=== PATIENT | female | born 1975 | race Caucasian/White ===

== ENCOUNTER 2018-03-17 13:17 | Observation (INO) | payer OTHER ==
[2018-03-17] MEDS ORDERED: MORPHINE 4 MG/ML SYR ONE (13:38)
[2018-03-17] MEDS ORDERED: ONDANSETRON 4 MG/2 ML VIAL ONE (13:38)
[2018-03-17] MEDS ORDERED: FENTANYL CITR 100 MCG/2 ML ONE (13:47)
[2018-03-17] MEDS ORDERED: Ringers Lactate 1,000 ML IV ONE (14:06)
[2018-03-17] MEDS ORDERED: HYDROMORPHONE HCL 1 MG/ML INJ ONE (14:06)
[2018-03-17 14:11] LABS: Absolute Lymphocytes (CBC) 2.2 K/uL (0.7-4.9); Absolute Monocytes 0.5 K/uL (0.1-1.3); Absolute Neutrophil 5.9 K/uL (1.8-8.0); Basophils % 0.4 % (0-1.3); Eosinophils % 2.2 % (0-4.4); Hematocrit 37.1 % (36.0-45.0); MCV 83.8 fL (80-100); Monocytes % 5.2 % (3.3-12.3); RBC Red Blood Cell Count 4.43 M/uL (3.86-4.86)
[2018-03-17 14:29] LABS: Albumin 3.8 g/dL (3.4-5.0); Bilirubin Direct 0.2 mg/dL (0-0.2); Bilirubin Total 0.7 mg/dL (0.2-1.0); Potassium 3.6 mmol/L (3.5-5.1)
[2018-03-17] MEDS ORDERED: PROMETHAZINE 25 MG/ML VIAL ONE (14:36)
[2018-03-17] MEDS ORDERED: NA CHLORIDE 0.9% 100 ML IV ONE (14:36)
--- NOTE | 2018-03-17 15:03 | RAD REPORT ---
EXAM DESCRIPTION: CTAbdomen Pelvis W Contrast - 03/17/2018 2:54 pm CLINICAL HISTORY: Abdominal pain. Right lower abdominal pain, IV ONLY COMPARISON: No comparisons TECHNIQUE: Biphasic CT imaging of the abdomen and pelvis was performed with 100 ml non-ionic IV cont rast. All CT scans are performed using dose optimization technique as appropriate and may include automated exposure control or mA/KV adjustment according to patient size. FINDINGS: The lung bases are clear.Small hiatal hernia. The liver, spleen, pancreas, adrenal glands and kidneys are within normal limits. No bowel obstruction, free air, free fluid or abscess. Scattered colonic diverticulosis is present. T he appendix is normal. No evidence of significant lymphadenopathy. No suspicious bony findings. 5.7 cm right ovarian cyst is present. 3.5 cm left ovarian cyst is present. IUD is in place over appea rs low in position near the cervix/lower uterine segment. IMPRESSION: Normal appendix. 5.7 cm right ovarian cyst is noted. IUD appears low in position.
--- NOTE | 2018-03-17 17:18 | ER ---
Nurse's Notes [facility] Name: Myrtle Barrow Age: 43 yrs Sex: Female : 1975 Arrival Date: 03/17/2018 Time: 13:21 Bed 13 Private MD: Diagnosis: Other ovarian cysts;Intractable Pain Presentation: 03/17 13:22 Presenting complaint: EMS states: sudden onset RLQ pain X 35 min, pain is now radiating iw around to back and down right leg, vomited upon arrival to ER, hx of ovarian cyst. Transition of care: patient was not received from another setting of care. Onset of symptoms was March 17, 2018. Risk Assessment: Do you want to hurt yourself or someone else? Patient reports no desire to harm self or others. Initial Sepsis Screen: Does the patient meet any 2 criteria? No. Patient's initial sepsis screen is negative. Does the patient have a suspected source of infection? No. Patient's initial sepsis screen is negative. Care prior to arrival: Medication(s) given: zofran 4 mg, fentanyl 100 mg IVP IV initiated. 20 GA, in the right forearm. 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 - Social history:: Smoking status: Patient/guardian denies using tobacco. - Ebola Screening: : Patient negative for fever greater than or equal to 101.5 degrees Fahrenheit, and additional compatible Ebola Virus Disease symptoms Patient denies exposure to infectious person Patient denies travel to an Ebola-affected area in the 21 days before illness onset No symptoms or risks identified at this time. Screenin:46 Abuse screen: Denies threats or abuse. Denies injuries from another. Nutritional ch screening: No deficits noted. Tuberculosis screening: No symptoms or risk factors identified. Fall Risk None identified. Assessment: 13:46 General: Appears uncomfortable, Behavior is anxious, restless. Pain: Complains of pain ch in right lower quadrant Pain currently is 10 out of 10 on a pain scale. Neuro: No deficits noted. Level of Consciousness is awake, alert, obeys commands, Oriented to person, place, time, situation, Supervisor Edging are equal bilaterally. Respiratory: Airway is patent Respiratory effort is even, unlabored, Breath sounds are clear bilaterally. GI: Bowel sounds present X 4 quads. Abd is soft X 4 quads Abdomen is tender to palpation in right lower quadrant. Derm: Skin is diaphoretic, Skin is pale. 14:54 Reassessment: Patient appears in no apparent distress at this time. Patient and/or ch family updated on plan of care and expected duration. Pain level reassessed. Patient is alert, oriented x 3, equal unlabored respirations, skin warm/dry/pink. pt states her pain is still an 8. pt appears more comfortable. pt transported to ct via wheelchair. 16:07 Reassessment: Patient appears in no apparent distress at this time. Patient and/or ch family updated on plan of care and expected duration. Pain level reassessed. Patient is alert, oriented x 3, equal unlabored respirations, skin warm/dry/pink. Patient states feeling better. Patient states symptoms have improved. 17:10 Reassessment: Patient and/or family updated on plan of care and expected duration. Pain hj level reassessed. Patient is alert, oriented x 3, equal unlabored respirations, skin warm/dry/pink. Patient states feeling better. Patient states symptoms have improved. 18:09 Reassessment: awaiting room placement;. Vital Signs: 13:26 BP 181 / 91; Pulse 78; Resp 18 S; Temp 98.2; Pulse Ox 100% on R/A; Weight 113.4 kg; iw Height 5 ft. 10 in. (177.80 cm); Pain 10/10; 13:46 BP 177 / 96; Pulse 88; Resp 18; Temp 98.3; Pulse Ox 99% on R/A; Pain 9/10; ch 15:00 BP 162 / 98; Pulse 84; Resp 15; Pulse Ox 99% on R/A; ch 16:07 BP 156 / 62; Pulse 71; Resp 16; Temp 98.4; Pulse Ox 99% on R/A; Pain 4/10; ch 17:02 BP 158 / 84; Pulse 75; Resp 16; Temp 98.3; Pulse Ox 99% on R/A; ch 18:08 BP 156 / 87; Pulse 74; Resp 18; Pulse Ox 100% on R/A; hj 13:26 Body Mass Index 35.87 (113.40 kg, 177.80 cm) ED Course: 13:21 Patient arrived in ED. iw 13:23 Soto Velazquez PA is PHCP. [facility] 13:23 Santana Sanders MD is Attending Physician. [facility] 13:25 Triage completed. iw 13:31 Clementina Gaviria, CLAUDIA is Primary Nurse. ch 13:46 Maintain EMS IV. Dressing intact. Good blood return noted. Site clean \T\ dry. Gauge \T\ iw site: 20 RFA. 13:46 No provider procedures requiring assistance completed. Missed attempt(s): 22 gauge in left in right hand. forearm. antecubital area. Bleeding controlled, band aid applied, catheter tip intact. 13:46 Patient has correct armband on for positive identification. Bed in low position. Call light in reach. Side rails up X2. Pulse ox on. NIBP on. 14:[address] via wheelchair. jg6 14:54 CT Abd/Pelvis - W/Contrast In Process Unspecified. EDMS 15:58 Transvaginal Study Probe In Process Unspecified. EDMS 17:06 Report given to Oscar. 17:17 Kirk Estrada MD is Hospitalizing Provider. [facility] 18:07 Inserted saline lock: 24 gauge in right forearm, using aseptic technique. hj 18:26 Patient admitted, IV remains in place. intact. hj 18:26 Arm band placed on. hj Administered Medications: 13:35 Drug: morphine 4 mg Route: IVP; Site: right forearm; iw 14:06 Follow up: Response: No adverse reaction; No change in condition ch 13:35 Drug: Zofran 4 mg Route: IVP; Site: right forearm; iw 14:05 Follow up: Response: No adverse reaction; No change in condition 13:45 Drug: fentaNYL (PF) 50 mcg Route: IVP; Site: right forearm; 13:59 Follow up: Response: No adverse reaction; No change in condition 13:50 Drug: Lactated Ringers Solution 1000 ml Route: IV; Rate: 1000 bolus; Site: right ch forearm; 14:50 Follow up: IV Status: Completed infusion; IV Intake: 1000ml 13:57 CANCELLED (other medication used): Ketorolac 30 mg IVP once [facility] 14:00 Drug: Dilaudid 1 mg Route: IVP; Site: right forearm; ch 14:25 Follow up: Response: No adverse reaction; Pain is decreased ch 16:11 Follow up: Response: No adverse reaction; Marked relief of symptoms ch 14:30 Drug: Phenergan 25 mg Route: IVP; Site: right forearm; ch 16:11 Follow up: Response: No adverse reaction; Marked relief of symptoms; pt recieved 100mL ch NS with phenergan, finished now. Intake: 14:50 IV: 1000ml; Total: 1000ml. Outcome: 17:18 Decision to Hospitalize by Provider. [facility] 18:25 Admitted to L \T\ D, accompanied by nurse, family with patient, via stretcher, room 279, with chart, Report called to CLAUDIA Meza 18:25 Condition: stable 18:25 Instructed on the need for admit, Demonstrated understanding of instructions. 18:26 Patient left the ED. Signatures: Dispatcher [employer] EDMS Clementina Gaviria, RN CLAUDIA Soto Velazquez PA PA Ruchi Hyman, CLAUDIA TAYLOR Oscar Salomon RN Ivanna Moore [email or web address] Corrections: (The following items were deleted from the chart) 13:46 13:26 Pulse 78bpm; Resp 18bpm; Spontaneous; Pulse Ox 100% RA; Temp 98.2F; 113.4 kg; iw Height 5 ft. 10 in.; BMI: 35.8; Pain 10/10; iw 13:47 13:46 Inserted saline lock: 20 gauge in right forearm, using aseptic technique. iw iw
--- NOTE | 2018-03-17 17:19 | EDPHYS ---
Physician Documentation [facility] Name: Myrtle Barrow Age: 43 yrs Sex: Female : 1975 Arrival Date: 03/17/2018 Time: 13:21 Bed 13 Private MD: ED Physician Santana Sanders HPI: 03/17 13:24 This 43 yrs old Female presents to ER via EMS with complaints of Abdominal [facility] Pain. 13:24 The patient presents with abdominal pain. 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 - Social history:: Smoking status: Patient/guardian denies using tobacco. - Ebola Screening: : Patient negative for fever greater than or equal to 101.5 degrees Fahrenheit, and additional compatible Ebola Virus Disease symptoms Patient denies exposure to infectious person Patient denies travel to an Ebola-affected area in the 21 days before illness onset No symptoms or risks identified at this time. Vital Signs: 13:26 BP 181 / 91; Pulse 78; Resp 18 S; Temp 98.2; Pulse Ox 100% on R/A; Weight 113.4 kg; iw Height 5 ft. 10 in. (177.80 cm); Pain 10/10; 13:46 BP 177 / 96; Pulse 88; Resp 18; Temp 98.3; Pulse Ox 99% on R/A; Pain 9/10; ch 15:00 BP 162 / 98; Pulse 84; Resp 15; Pulse Ox 99% on R/A; ch 16:07 BP 156 / 62; Pulse 71; Resp 16; Temp 98.4; Pulse Ox 99% on R/A; Pain 4/10; ch 17:02 BP 158 / 84; Pulse 75; Resp 16; Temp 98.3; Pulse Ox 99% on R/A; ch 18:08 BP 156 / 87; Pulse 74; Resp 18; Pulse Ox 100% on R/A; hj 13:26 Body Mass Index 35.87 (113.40 kg, 177.80 cm) iw MDM: 13:29 Patient medically screened. [facility] 17:16 Data reviewed: vital signs, nurses notes, lab test result(s), radiologic studies. [facility] Counseling: I had a detailed discussion with the patient and/or guardian regarding: the historical points, exam findings, and any diagnostic results supporting the discharge/admit diagnosis, radiology results, the need for further work-up and treatment in the hospital. 03/17 13:24 Order name: Basic Metabolic Panel; Complete Time: 14:32 [facility] 03/17 13:24 Order name: CBC with Diff; Complete Time: 14:32 [facility] 03/17 13:24 Order name: Creatinine for Radiology; Complete Time: 14:32 [facility] 03/17 13:24 Order name: Hepatic Function; Complete Time: 14:32 [facility] 03/17 13:24 Order name: Lipase; Complete Time: 14:32 [facility] 03/17 13:24 Order name: Test, Serum; Complete Time: 14:32 [facility] 03/17 13:30 Order name: CT Abd/Pelvis - W/Contrast; Complete Time: 15:12 [facility] 03/17 15:58 Order name: Transvaginal Study Probe; Complete Time: 18:11 [facility] 03/17 13:24 Order name: IV Saline Lock; Complete Time: 14:06 [facility] 03/17 13:24 Order name: Labs collected and sent; Complete Time: 14:07 [facility] 03/17 13:24 Order name: Saline Lock; Complete Time: 14:05 [facility] 03/17 17:38 Order name: [facility] [employer] EDAZ Administered Medications: 13:35 Drug: morphine 4 mg Route: IVP; Site: right forearm; iw 14:06 Follow up: Response: No adverse reaction; No change in condition ch 13:35 Drug: Zofran 4 mg Route: IVP; Site: right forearm; iw 14:05 Follow up: Response: No adverse reaction; No change in condition ch 13:45 Drug: fentaNYL (PF) 50 mcg Route: IVP; Site: right forearm; ch 13:59 Follow up: Response: No adverse reaction; No change in condition ch 13:50 Drug: Lactated Ringers Solution 1000 ml Route: IV; Rate: 1000 bolus; Site: right forearm; 14:50 Follow up: IV Status: Completed infusion; IV Intake: 1000ml hj 13:57 CANCELLED (other medication used): Ketorolac 30 mg IVP once [facility] 14:00 Drug: Dilaudid 1 mg Route: IVP; Site: right forearm; ch 14:25 Follow up: Response: No adverse reaction; Pain is decreased ch 16:11 Follow up: Response: No adverse reaction; Marked relief of symptoms ch 14:30 Drug: Phenergan 25 mg Route: IVP; Site: right forearm; ch 16:11 Follow up: Response: No adverse reaction; Marked relief of symptoms; pt recieved 100mL ch NS with phenergan, finished now. Disposition: 03/17/18 17:18 Hospitalization ordered by Kirk Estrada for Observation. Preliminary diagnosis are Other ovarian cysts, Intractable Pain. - Bed [facility] for [facility]. - Status is Observation. hj - Condition is Stable. - Problem is new. - Symptoms have improved. UTI on Admission? No Addendum: 03/22/2018 17:00 Addendum: This is a 33 year old female with a history of HTN, Ovarian cysts that j mm presents to the ED with RLQ abdominal pain just prior to arrival. Denies diarrhea, denies fever. ROS: Abdominal pain, nausea, vomiting. Otherwise negative. PE: Gen: Alert, uncomfortable in appearance, Resp: RRR, Cardio: RRR, Abd: Right sided abdominal pain on palpation, soft. Extremities: FROM, Neuro: A x o x 3. MDM. A large ovarian cyst is revealed on CT and US imaging. Flow is noted to the ovaries. Patient's is still uncomfortable in the ED. Due to large size of cyst patient will be observed. I discussed findings with Dr. Estrada whom accepted admission. Diagnosis: Right ovarian cyst, pelvic pain intractable. . Signatures: Dispatcher [employer] EDMS Clementina Gaviria, Soto Veliz RN, ch, PA PA jmm Williams, Irene, RN RN iw Joaquin, Henry, RN RN hj Moya, Gabriella Corrections: (The following items were deleted from the chart) 03/17 13:57 13:56 Ketorolac 30 mg IVP once ordered. cj josé 15:58 15:14 Pelvis Complete+US.RAD.BRZ ordered. EDMS EDMS 18:12 17:18 Hospitalization Ordered by Kirk Estrada MD for Observation. Preliminary gm diagnosis is Other ovarian cysts; Intractable Pain. Bed requested for [facility]. Status is Observation. Condition is Stable. Problem is new. Symptoms have improved. UTI on Admission? No. jmm 18:26 18:12 03/17/2018 17:18 Hospitalization Ordered by Kirk Estrada MD for Observation. hj Preliminary diagnosis is Other ovarian cysts; Intractable Pain. Bed requested for [facility]. Status is Observation. Condition is Stable. Problem is new. Symptoms have improved. UTI on Admission? No. gm
[2018-03-17] MEDS ORDERED: ONDANSETRON 4 MG/2 ML VIAL IV PRN (17:35)
--- NOTE | 2018-03-17 18:02 | RAD REPORT ---
EXAM DESCRIPTION: US - Transvaginal Study Probe - 03/17/2018 3:58 pm CLINICAL HISTORY: right lower abdominal pain Pelvic pain. COMPARISON: TRANSVAGINAL STUDY PROBE dated 10/07/2011 FINDINGS: The uterus is normal in size, shape and echotexture. The uterus measures 9.4 x 6.9 x 6.1 c m The endometrial stripe measures 6 mm, normal. IUD is present in the lower uterine segment/ cervical c anal. Both ovaries are normal in size, shape and echotexture. The right ovary measures 8.7 x 5.0 x 4.4 cm. The left ovary measures 5.8 x 4.0 x 2.7 cm. Two abutting right ovarian cysts suspected measuring 5. 5 x 3.7 x 3.9 cm in totality. Several follicles also noted involving the left ovary the largest measu ring 3.4 x 2.4 cm. Normal Doppler blood flow was demonstrated to both ovaries. No significant pelvic ascites. IMPRESSION: Bilateral ovarian anechoic cysts are present, likely functional in etiology.No evidence of ovarian torsion. IUD is low in position at the level of the lower uterine segment/cervical canal.
[2018-03-17] MEDS: MORPHINE 4 MG/ML SYR IV PRN (18:45)
[2018-03-17 19:07] VITALS: BMI 35.9
[2018-03-17] MEDS ORDERED: KETOROLAC 30 MG/ML INJ IV ONE (19:29)
[2018-03-17] MEDS ORDERED: D5LR 1,000 ML IV SCH (20:00)
[2018-03-17] MEDS ORDERED: ZOLPIDEM TARTRATE 5 MG TABLET PO SCH (21:00)
[2018-03-17] MEDS: CODEINE 30MG/APAP 300MG TAB PO PRN (23:35)
[2018-03-18] MEDS: MORPHINE 4 MG/ML SYR IV PRN ×3 (04:35→19:20)
[2018-03-18] MEDS: Ringers Lactate 1,000 ML IV SCH (04:35)
[2018-03-18] MEDS ORDERED: KETOROLAC 30 MG/ML INJ IV ONE (07:25)
[2018-03-18] MEDS ORDERED: cloNIDine HCl 0.1 MG TAB PO ONE (07:47)
[2018-03-18] MEDS ORDERED: CEFAZOLIN/SWI 1gm 1 GM/10 ML SYR IV SCH (08:15)
--- NOTE | 2018-03-18 09:55 | PREOPHP ---
Date of Admission: 03/17/2018 A 43-year-old female with sudden onset of right lower quadrant pain. 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 CAT scan and ultrasound demonstrated a 5.7 cm right ovarian cyst, a 3.7 cm left ovarian cyst, and IUD that is in the low part of the uterus, but this is not being used for contraception. She has Mirena and it has controlled her bleeding, so I do not think that is the problem although we suggest we possibly could remove the IUD and see if that takes care of the pain. It appears though t hat the right ovarian cyst is the cause of the pain. The patient has been given options of expectant management, but she has had Dilaudid and morphine and nothing seems to be helping her pain other sudhakar n Toradol, which we will give here IV prior to the surgery. She wishes to proceed with diagnostic la paroscopy, probable oophorectomy, lysis of adhesions, appendectomy whatever is necessary to alleviate her discomfort. Dr. Lanza has been notified. He and I will proceed with the surgery at the first o pportunity, she will be kept n.p.o., of course, until then. Family History: Diabetes, congestive heart failure in her father, but no significant other family hi story. Allergies: THE PATIENT HAS REALLY NO ALLERGIES. AT ONE TIME, SHE WAS THOUGHT TO BE ALLERGIC TO EMA ISONE, BUT SHE SAYS SHE DOES NOT THINK THAT IS THE CASE. SHE IS N.P.O. HER VITAL SIGNS ARE SIGNIFICANT IN THAT SHE HAS SIGNIFICANTLY ELEVATED BLOOD PRESSURES , AT TIME HITTING 200 SYSTOLIC. I GAVE HER CLONIDINE 0.1 MG AT THIS POINT AND ANESTHESIA OF COURSE W ILL NEED TO CONSIDER WHAT TO DO TO CONTROL IT WHILE WE ARE AT SURGERY. Physical Examination: HEENT: Clear. Pupils equal, round, and reactive to light and accommodation. Conjunctivae clear. N o oral, lingual or buccal lesions. Heart: Without murmurs, thrills, heaves, or rubs. Lungs: Clear. Breasts: Not examined. Abdomen: Very tender so exam is deferred. Extremities: Clear without edema, cyanosis, or clubbing. Plan: We will proceed with diagnostic laparoscopy, probable oophorectomy. JOSE CRUZ/KAREN Voice ID: [id number]
[2018-03-18] MEDS ORDERED: Ringers Lactate 1,000 ML IV ONE (10:50)
[2018-03-18] MEDS ORDERED: CEFAZOLIN/SWI 1gm 1 GM/10 ML SYR ONE (10:50)
[2018-03-18] MEDS ORDERED: PROPOFOL 200 MG/20 ML VIAL IV ONE (11:51)
[2018-03-18] MEDS ORDERED: MIDAZOLAM HCL 2 MG/2 ML INJ ONE (11:52)
[2018-03-18] MEDS ORDERED: FENTANYL CITR 100 MCG/2 ML ONE (11:52)
[2018-03-18] MEDS ORDERED: ONDANSETRON HCL 40 MG/20 ML VIAL ONE (11:53)
[2018-03-18] MEDS ORDERED: ROCURONIUM 50 MG/5 ML VIAL IV ONE (11:53)
[2018-03-18] MEDS ORDERED: LIDOCAINE 1% MPF 2 ML AMPULE ONE (11:54)
[2018-03-18] MEDS ORDERED: PROMETHAZINE 25 MG/ML VIAL IV PRN (13:52)
[2018-03-18] MEDS: MEPERIDINE HCL 50 MG/ML AMP ONE ×2 (13:52→14:00)
[2018-03-18] MEDS ORDERED: ZOLPIDEM TARTRATE 5 MG TABLET PO PRN (13:53)
[2018-03-18] MEDS ORDERED: KETOROLAC 30 MG/ML INJ IV PRN (13:54)
[2018-03-18] MEDS ORDERED: HYDRALAZINE HCL 20 MG/ML VIAL IV PRN (13:59)
[2018-03-18] MEDS ORDERED: D5LR 1,000 ML IV SCH (14:00)
[2018-03-18] MEDS ORDERED: Ringers Lactate 1,000 ML IV SCH (14:00)
[2018-03-18 14:24] VITALS: O2SAT 95
[2018-03-18] MEDS ORDERED: MORPHINE 4 MG/ML SYR ONE (14:26)
[2018-03-18] MEDS ORDERED: D5LR 1,000 ML IV ONE (14:34)
[2018-03-18 20:49] LABS: Hematocrit 33.2 % (36.0-45.0)
[2018-03-18] MEDS ORDERED: CEFAZOLIN/SWI 1gm 1 GM/10 ML SYR IVP SCH (21:00)
[2018-03-18] MEDS ORDERED: CEFAZOLIN/SWI 1gm 1 GM/10 ML SYR IVP ONE (21:00)
--- NOTE | 2018-03-19 01:05 | OP ---
Surgeon: Kirk Estrada MD Indication: Myrtle Barrow is a 43-year-old female with preoperative diagnosis of bilateral ovarian c ysts. Right ovarian cyst 5.7 cm, left ovarian cyst 3.7 cm, not thought to have torsion on ultrasound and CAT scan. Full preoperative counseling concerning procedure and possible complications includin g infection; blood loss; anesthetic complications; injury to bladder, bowel, ureter; postoperative co mplications, clots in legs and pneumonia. The patient had signed for cystectomy, possible oophorecto my, possible appendectomy. Description Of Procedure: After adequate general anesthesia had been employed, timeout was performed . Dr. Lanza placed 3 ports, 1 above the umbilicus and 2 on the lower quadrants. Pneumoperitoneum wa s established and visualizing instruments were placed. There were noted to be dense adhesions above the uterus from previous sections x2. These were brought down as they were interfering with proper visualization of the operative site. The right ovary was noted to be involved in a torsion s ituation and was much larger than 5.7 cm, I would say at least 8 cm to 9 cm, possibly even larger. L eft ovary had a torsion also, but it was not involve with the distal end of the tube. The uterus its elf was normal. Area of the appendix was normal. With clamping and fulguration, the right ovary was completely removed as well as the right tube. These were taken out in 2 to 3 pieces and sent to [facility]. There was bleeding from the right adnexa, but hemostatic clamps were placed. The clips were placed and the bleeding subsided. Total blood loss during the procedure thought to be about 350 cc, possibly less. On the left side, the tube was coiled and actually almost tied into a knot at the en d. Left partial salpingectomy was performed. The ovary itself appeared normal and no cystic formati on or other type of problems. Thorough irrigation was performed. Surgicel was placed in the area fo r small raw areas that were noted on the right adnexa. The patient tolerated all procedures well. S he had been given 1 g of Ancef prior to the procedure. Will be transferred to the recovery room. I think because of the bleeding that occurred on the right side, we will probably observe the patient o vernight and then let her go home tomorrow morning. Final Diagnoses: Significant pelvic adhesions, right ovarian torsion, left tubal torsion. Procedures Performed: Diagnostic laparoscopy, lysis of adhesions, right salpingo-oophorectomy, left partial salpingectomy. JOSE CRUZ/KAREN Voice ID: [id number] Report ID: [id number]
[2018-03-19] MEDS: Ringers Lactate 1,000 ML IV SCH (01:36)
[2018-03-19] MEDS: CODEINE 30MG/APAP 300MG TAB PO PRN (05:27)
[2018-03-19] MEDS ORDERED: ACETAMINOPHEN 500 MG TAB PO ONE (08:09)
[2018-03-19 10:16] VITALS: BP 145/67; TEMP 99.1
--- NOTE | 2018-03-20 02:50 | DS ---
Date of Discharge: 03/19/2018 A 43-year-old female with right ovarian torsion, left tubal torsion, severe adhesions. The patient u nderwent diagnostic laparoscopy with lysis of adhesions resulting from the previous sections , was noted to have a torsed right adnexa involving the tube and ovary. The initial evaluation to [facility] emergency room showed a 5.7 cm cystic structure. The structure at the time of surgery was much lar tessa, probably in the 9 cm to 10 cm range, very cyanotic, and torsed. The adnexa on that side basical ly tube and ovary were removed. On the left side, the left tube had a hydatid-type cyst and this was also torsed. Partial salpingectomy was performed on the left side. Postoperatively, the patient morales s done quite well. She says, she is feeling much better. She is ambulating. Output is good. Her b lood pressures, which were initially elevated, are now moderated. She will be dismissed after breakf ast. She says, she is very hungry at this point. She is to return to my office Wednesday of . Her incision ports all looked good. Dismissed with tramadol for analgesia. She is to report an y fever, severe pain, or any other type of problems. Final Diagnoses: Complete torsion of the right adnexa involving tube and ovary, right salpingo-oopho rectomy performed, left tubal torsion, partial salpingectomy performed, lysis of numerous adhesions r esulting from sections x2. JOSE CRUZ/KAREN Voice ID: [id number] Report ID: [id number]
== END 2018-03-19 09:45 | disposition home or self-care (01) ==
LOC: ER 13:17 → ERHOLD 17:34 → 2ND-WC 18:22
PROVIDERS: ADMIT Specialist; ATTEND Specialist
PROC: 0UT54ZZ Resection of Right Fallopian Tube, Percutaneous Endoscopic Approach (ICD-10-PCS; 2018-03-18)
PROC: 0UB64ZZ Excision of Left Fallopian Tube, Percutaneous Endoscopic Approach (ICD-10-PCS; 2018-03-18)
PROC: 0UT04ZZ Resection of Right Ovary, Percutaneous Endoscopic Approach (ICD-10-PCS; principal; 2018-03-18 10:15)
DX: N83.53 Torsion of ovary, ovarian pedicle and fallopian tube (principal); N83.202 Unspecified ovarian cyst, left side; N83.201 Unspecified ovarian cyst, right side; Z97.5 Presence of (intrauterine) contraceptive device
CPT/HCPCS: 36415; 74177; 76830; 80048; 80076; 83690; 84703; 85014; 85018; 85025; 86850; 86900; 86901; 88305; 96361; 96374; 96375; 99285; G0378; J0690; J1170; J2001; J2175; J2250; J2405; J2550; J2704; J3010; Q9967

== ENCOUNTER 2018-04-24 21:06 | Emergency (ER) | payer OTHER ==
[2018-04-24] MEDS ORDERED: KETOROLAC 30 MG/ML INJ ONE (22:41)
[2018-04-24] MEDS ORDERED: NA CHLORIDE 0.9% 1,000 ML ONE (22:41)
[2018-04-24 23:12] LABS: Absolute Lymphocytes (CBC) 2.6 K/uL (0.7-4.9); Absolute Monocytes 0.6 K/uL (0.1-1.3); Absolute Neutrophil 3.2 K/uL (1.8-8.0); Eosinophils % 4.2 % (0-4.4); Hematocrit 37.7 % (36.0-45.0); Lymphocytes % 38.8 % (15.3-44.8); MCH 29.3 pg (27.0-35.0); MCV 85.2 fL (80-100); Monocytes % 8.3 % (3.3-12.3); RBC Red Blood Cell Count 4.43 M/uL (3.86-4.86)
[2018-04-24 23:25] LABS: Urine Blood NEGATIVE (NEG); Urine Glucose NEGATIVE (NEG); Urine Protein NEGATIVE (NEG)
[2018-04-24 23:35] LABS: Albumin 3.7 g/dL (3.4-5.0); Bilirubin Direct 0.1 mg/dL (0-0.2); Bilirubin Total 0.6 mg/dL (0.2-1.0); Protein, Total 7.3 g/dL (6.4-8.2)
--- NOTE | 2018-04-25 02:40 | ER ---
Nurse's Notes [facility] Name: Myrtle Barrow Age: 43 yrs Sex: Female : 1975 Arrival Date: 04/24/2018 Time: 21:10 Bed 8 Private MD: Diagnosis: Abdominal tenderness Presentation: 04/24 21:16 Transition of care: patient was not received from another setting of care. Onset of la1 symptoms was April 24, 2018. Risk Assessment: Do you want to hurt yourself or someone else? Patient reports no desire to harm self or others. Initial Sepsis Screen: Does the patient meet any 2 criteria? No. Patient's initial sepsis screen is negative. Does the patient have a suspected source of infection? No. Patient's initial sepsis screen is negative. Care prior to arrival: None. 21:16 Method Of Arrival: Ambulatory la1 21:16 Acuity: [place] 3 la1 21:30 Presenting complaint: Patient states: "I had surgery on my ovaries about a month ago jd3 and today I am having a lot of pain at the sx sight. I think I might have a hernia or something like that where they went it.". 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 - Social history:: Smoking status: Patient/guardian denies using tobacco. - Ebola Screening: : No symptoms or risks identified at this time. Screenin:30 Abuse screen: Denies threats or abuse. Nutritional screening: No deficits noted. jd3 Tuberculosis screening: No symptoms or risk factors identified. Fall Risk Ambulatory Aid- None/Bed Rest/Nurse Assist (0 pts). Gait- Normal/Bed Rest/Wheelchair (0 pts) Mental Status- Oriented to own ability (0 pts). Total Pierre Fall Scale indicates No Risk (0-24 pts). Assessment: 21:27 General: Appears in no apparent distress. uncomfortable, Behavior is cooperative, jd3 appropriate for age, anxious, Reports recent abdominal sx. Pain: Complains of pain in umbilical area Quality of pain is described as aching, tender. Neuro: Level of Consciousness is awake, alert, obeys commands, Oriented to person, place, time, situation. Cardiovascular: Capillary refill < 3 seconds Patient's skin is warm and dry. Respiratory: Airway is patent Respiratory effort is even, unlabored, Respiratory pattern is regular, symmetrical. GI: Abdomen is round non-distended, Bowel sounds present X 4 quads. Abd is soft and non tender X 4 quads. Abdomen is tender to palpation in umbilical area Reports nausea, Patient currently denies constipation, diarrhea, vomiting. : No signs and/or symptoms were reported regarding the genitourinary system. EENT: No signs and/or symptoms were reported regarding the EENT system. Derm: Skin is intact, Skin is dry, Skin is normal, Skin temperature is warm. Musculoskeletal: Circulation, motion, and sensation intact. Range of motion: intact in all extremities. 22:11 Reassessment: Patient appears in no apparent distress at this time. No changes from jd3 previously documented assessment. Patient and/or family updated on plan of care and expected duration. Pain level reassessed. Patient is alert, oriented x 3, equal unlabored respirations, skin warm/dry/pink. awaiting to be seen by a provider. 23:42 Reassessment: Patient appears in no apparent distress at this time. Patient and/or jd3 family updated on plan of care and expected duration. Pain level reassessed. Patient is alert, oriented x 3, equal unlabored respirations, skin warm/dry/pink. Patient states feeling better. 04/25 00:51 Reassessment: Patient appears in no apparent distress at this time. No changes from jd3 previously documented assessment. Patient and/or family updated on plan of care and expected duration. Pain level reassessed. Patient is alert, oriented x 3, equal unlabored respirations, skin warm/dry/pink. 01:59 Reassessment: Patient appears in no apparent distress at this time. Patient and/or jd3 family updated on plan of care and expected duration. Pain level reassessed. Patient is alert, oriented x 3, equal unlabored respirations, skin warm/dry/pink. Vital Signs: 04/24 21:18 BP 146 / 80; Pulse 97; Resp 16; Temp 97.8; Pulse Ox 98% on R/A; Weight 113.4 kg; Height la1 5 ft. 10 in. (177.80 cm); 23:42 BP 152 / 84; Pulse 85; Resp 16 S; Pulse Ox 97% on R/A; jd3 04/25 00:51 BP 148 / 78; Pulse 84; Resp 17 S; Pulse Ox 98% on R/A; jd3 01:59 BP 143 / 59; Pulse 78; Resp 16 S; Pulse Ox 97% on R/A; jd3 04/24 21:18 Body Mass Index 35.87 (113.40 kg, 177.80 cm) la1 ED Course: 04/24 21:10 Patient arrived in ED. mr 21:17 Triage completed. la1 21:18 Arm band placed on right wrist. la1 21:24 Deepak Calero, CLAUDIA is Primary Nurse. jd3 21:30 Patient has correct armband on for positive identification. Bed in low position. [facility]. Side rails up X 1. 22:27 Jacqueline Winn FNP-C [facility]. snw 22:27 Bautista Forman MD is Attending Physician. snw 23:00 Initial lab(s) drawn, by me, sent to lab. Inserted 18 gauge 10 cm midline to left upper fc basilic vein on first attempt. Line with good blood return and flushes well. 04/25 00:50 CT Abd/Pelvis - W/Contrast In Process Unspecified. EDMS 02:48 No provider procedures requiring assistance completed. IV discontinued, intact, jd3 bleeding controlled, No redness/swelling at site. Pressure dressing applied. Administered Medications: 04/24 23:15 Drug: NS 0.9% 1000 ml Route: IV; Rate: 125 ml/hr; Site: left antecubital; jd3 04/25 02:50 Follow up: Response: No adverse reaction; IV Status: Order to discontinue infusion jd3 04/24 23:16 Drug: TORadol 30 mg Route: IVP; Site: left antecubital; jd3 04/25 00:05 Follow up: Response: No adverse reaction jd3 Outcome: 02:38 Discharge ordered by . snw 02:48 Discharged to home ambulatory. jd3 02:48 Condition: stable 02:48 Discharge instructions given to patient, Instructed on discharge instructions, follow up and referral plans. medication usage, Demonstrated understanding of instructions, follow-up care, medications, Prescriptions given X 2. 02:51 Patient left the ED. jd3 Signatures: Dispatcher [employer] EDMS Jacqueline Winn, JESSICA-C OUTREACH EDUCATOR-Okw Myrtle Webster, Esther, RN RN Scooter Germain RN RN laDeepak Escobar RN RN jd3 Corrections: (The following items were deleted from the chart) 04/24 23:14 23:13 Inserted 18 gauge 10 cm midline to left upper basilic vein on first attempt. Line fc with good blood return and flushes well. 23:13 Initial lab(s) drawn, by me, sent to lab. [facility]
--- NOTE | 2018-04-25 02:40 | EDPHYS ---
Physician Documentation [facility] Name: Myrtle Barrow Age: 43 yrs Sex: Female : 1975 Arrival Date: 04/24/2018 Time: 21:10 Bed 8 Private MD: ED Physician Bautista Forman HPI: 04/24 23:56 This 43 yrs old Female presents to ER via Ambulatory with complaints of Belly snw button pain. 23:56 Onset: The symptoms/episode began/occurred suddenly. Associated signs and symptoms: The snw patient has no apparent associated signs or symptoms. Modifying factors: The patient symptoms are alleviated by nothing, the patient symptoms are aggravated by pressure to area. The patient has not experienced similar symptoms in the past. The patient has been recently seen by a physician: pt recently had ovarian torsion, laproscopic surgery a few weeks ago, concern umbilical pain is related. 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 - Social history:: Smoking status: Patient/guardian denies using tobacco. - Ebola Screening: : No symptoms or risks identified at this time. ROS: 23:54 Constitutional: Negative for fever, chills, and weight loss, Eyes: Negative for injury, snw pain, redness, and discharge, ENT: Negative for injury, pain, and discharge, Neck: Negative for injury, pain, and swelling, Cardiovascular: Negative for chest pain, palpitations, and edema, Respiratory: Negative for shortness of breath, cough, wheezing, and pleuritic chest pain, Back: Negative for injury and pain, : Negative for injury, bleeding, discharge, and swelling, MS/Extremity: Negative for injury and deformity, Skin: Negative for injury, rash, and discoloration, Neuro: Negative for headache, weakness, numbness, tingling, and seizure, Psych: Negative for depression, anxiety, suicide ideation, homicidal ideation, and hallucinations. 23:54 Abdomen/GI: Positive for abdominal pain, Negative for nausea, vomiting, diarrhea, constipation. Exam: 23:54 Constitutional: This is a well developed, well nourished patient who is awake, alert, snw and in no acute distress. Head/Face: Normocephalic, atraumatic. Eyes: Pupils equal round and reactive to light, extra-ocular motions intact. Lids and lashes normal. Conjunctiva and sclera are non-icteric and not injected. Cornea within normal limits. Periorbital areas with no swelling, redness, or edema. ENT: Nares patent. No nasal discharge, no septal abnormalities noted. Tympanic membranes are normal and external auditory canals are clear. Oropharynx with no redness, swelling, or masses, exudates, or evidence of obstruction, uvula midline. Mucous membranes moist. Neck: Trachea midline, no thyromegaly or masses palpated, and no cervical lymphadenopathy. Supple, full range of motion without nuchal rigidity, or vertebral point tenderness. No Meningismus. Chest/axilla: Normal chest wall appearance and motion. Nontender with no deformity. No lesions are appreciated. Cardiovascular: Regular rate and rhythm with a normal S1 and S2. No gallops, murmurs, or rubs. Normal PMI, no JVD. No pulse deficits. Respiratory: Lungs have equal breath sounds bilaterally, clear to auscultation and percussion. No rales, rhonchi or wheezes noted. No increased work of breathing, no retractions or nasal flaring. Back: No spinal tenderness. No costovertebral tenderness. Full range of motion. Skin: Warm, dry with normal turgor. Normal color with no rashes, no lesions, and no evidence of cellulitis. MS/ Extremity: Pulses equal, no cyanosis. Neurovascular intact. Full, normal range of motion. Neuro: Awake and alert, GCS 15, oriented to person, place, time, and situation. Cranial nerves II-XII grossly intact. Motor strength 5/5 in all extremities. Sensory grossly intact. Cerebellar exam normal. Normal gait. 23:54 Abdomen/GI: Inspection: abdomen appears normal, Bowel sounds: normal, Palpation: moderate abdominal tenderness, in the umbilical area. Vital Signs: 21:18 BP 146 / 80; Pulse 97; Resp 16; Temp 97.8; Pulse Ox 98% on R/A; Weight 113.4 kg; Height la1 5 ft. 10 in. (177.80 cm); 23:42 BP 152 / 84; Pulse 85; Resp 16 S; Pulse Ox 97% on R/A; jd3 04/25 00:51 BP 148 / 78; Pulse 84; Resp 17 S; Pulse Ox 98% on R/A; jd3 01:59 BP 143 / 59; Pulse 78; Resp 16 S; Pulse Ox 97% on R/A; jd3 04/24 21:18 Body Mass Index 35.87 (113.40 kg, 177.80 cm) la1 MDM: 04/24 22:27 Patient medically screened. snw 04/25 02:42 Data reviewed: vital signs, nurses notes. Data interpreted: Pulse oximetry: on room air snw is 97 %. Interpretation: acceptable. Counseling: I had a detailed discussion with the patient and/or guardian regarding: the historical points, exam findings, and any diagnostic results supporting the discharge/admit diagnosis, the presence of at least one elevated blood pressure reading (>120/80) during this emergency department visit, lab results, radiology results, the need for outpatient follow up, to return to the emergency department if symptoms worsen or persist or if there are any questions or concerns that arise at home. Response to treatment: the patient's symptoms have mildly improved after treatment. Special discussion: Based on the history and exam findings, there is no indication for further emergent testing or inpatient evaluation. I discussed with the patient/guardian the need to see the OB Gyne specialist for further evaluation of the symptoms. I discussed with the patient/guardian the need to see the primary care provider for further evaluation of the symptoms. 04/24 22:29 Order name: Basic Metabolic Panel; Complete Time: 23:37 snw 04/24 22:29 Order name: CBC with Diff; Complete Time: 23:29 snw 04/24 22:29 Order name: Hepatic Function; Complete Time: 23:37 snw 04/24 22:29 Order name: Lipase; Complete Time: 23:37 snw 04/24 22:29 Order name: Urine Culture snw 04/24 22:29 Order name: CT Abd/Pelvis - W/Contrast snw 04/24 22:29 Order name: IV Saline Lock; Complete Time: 23:15 snw 04/24 22:29 Order name: Labs collected and sent; Complete Time: 23:15 snw 04/24 22:29 Order name: Urine Test (obtain specimen); Complete Time: 23:15 snw 04/24 23:06 Order name: Urine Dipstick--Ancillary (enter results); Complete Time: 23:29 mw2 04/24 23:06 Order name: Urine --Ancillary (enter results); Complete Time: 23:29 mw2 04/24 22:29 Order name: Urine Dipstick-Ancillary (obtain specimen); Complete Time: 23:15 snw Administered Medications: 04/24 23:15 Drug: NS 0.9% 1000 ml Route: IV; Rate: 125 ml/hr; Site: left antecubital; jd3 04/25 02:50 Follow up: Response: No adverse reaction; IV Status: Order to discontinue infusion jd3 04/24 23:16 Drug: TORadol 30 mg Route: IVP; Site: left antecubital; jd3 04/25 00:05 Follow up: Response: No adverse reaction jd3 Disposition: 03:15 Co-signature as Attending Physician, Bautista Forman MD. pkl Disposition: 04/25/18 02:38 Discharged to Home. Impression: Abdominal tenderness. - Condition is Stable. - Discharge Instructions: Abdominal Pain, Adult, Ovarian Cyst, Laparoscopic Ovarian Torsion Surgery. - Prescriptions for Bentyl 20 mg Oral Tablet - take 1 tablet by ORAL route every 6 hours As needed; 20 tablet. Diclofenac Sodium 75 mg Oral Tablet Sustained Release - take 1 tablet by ORAL route 2 times per day; 30 tablet. - Medication Reconciliation Form, Thank You Letter, Antibiotic Education, Prescription Opioid Use form. - Follow up: Private Physician; When: 2 - 3 days; Reason: Recheck today's complaints, Continuance of care, Re-evaluation by your physician. Follow up: Emergency Department; When: As needed; Reason: Worsening of condition. Signatures: Dispatcher [employer] [facility] Bautista Forman MD MD pkl Jacqueline Winn, MENTAL HEALTH TECHNICIAN-C MENTAL HEALTH TECHNICIAN-Csnw Scooter Barkley RN RN laDeepak Escobar RN RN jd3 Corrections: (The following items were deleted from the chart) 04/24 23:36 22:30 Creatinine for Radiology+C.LAB.BRZ ordered. [facility] 04/25 02:51 02:38 04/25/2018 02:38 Discharged to Home. Impression: Abdominal tenderness. Condition jd3 is Stable. Forms are Medication Reconciliation Form, Thank You Letter, Antibiotic Education, Prescription Opioid Use. Follow up: Private Physician; When: 2 - 3 days; Reason: Recheck today's complaints, Continuance of care, Re-evaluation by your physician. Follow up: Emergency Department; When: As needed; Reason: Worsening of condition. snw
[2018-04-25 03:08] VITALS: TEMP 97.8
[2018-04-25 03:13] VITALS: BP 143/59; O2SAT 97
--- NOTE | 2018-04-25 08:50 | RAD REPORT ---
EXAM DESCRIPTION: CT - Abdomen Pelvis W Contrast - 04/25/2018 6:43 am CLINICAL HISTORY: Abdominal pain, history of ovarian surgery 1 month earlier with pain at the surgic al site ; oophorectomy COMPARISON: March 17, 2018 TECHNIQUE: Biphasic, helical CT imaging of the abdomen and pelvis was performed following 100 ml non -ionic IV contrast. Oral contrast was given. All CT scans are performed using dose optimization technique as appropriate and may include automated exposure control or mA/KV adjustment according to patient size. FINDINGS: No suspicious findings in the lung bases. The liver, spleen, and pancreas show no suspicious findings. Liver attenuation is borderline to mildl y fatty infiltrated. No gallbladder or biliary tree abnormality. Symmetric renal function is seen with no hydronephrosis or suspicious renal mass. No pyelonephritis o r acute parenchymal process. No bladder abnormalities. No adrenal abnormalities. No dilated bowel loops or bowel wall thickening. Appendix is normal. No free air, free fluid or infla mmatory stranding. Fat protrudes into origin of each inguinal canal. No abdominal wall hematoma or m ass. No suspicious findings in the subcutaneous fatty tissues. Normal size uterus is seen. Low positioned IUD noted. This is similar to the prior study. Arms of the IUD may extend into the myometrium of the lower uterine segment/ cervical canal. Right oophorectomy surgical clips are present. A 3.3 centimeter left ovarian cyst is unchanged. No suspicious bony findings. IMPRESSION: Contrast enhanced CT abdomen and pelvis showing no emergent finding. Approximately 3.3 centimeter left ovarian cyst has not changed. No suspicious finding in the right oo phorectomy site. IUD remains positioned low along the cervical canal and lower uterine segment region. No interval kiah nge since March. Nonacute findings are detailed in the body of the report.
== END 2018-04-25 02:51 | disposition home or self-care (01) ==
LOC: ER 21:06
DX: R10.819 Abdominal tenderness, unspecified site (principal); I10 Essential (primary) hypertension
CPT/HCPCS: 36415; 74177; 80048; 80076; 81003; 81025; 83690; 85025; 87077; 87086; 87088; 87186; 96361; 96374; 99284; J7030; Q9967

== ENCOUNTER → 2018-06-06 | Day surgery (SDC) | payer OTHER ==
--- NOTE | 2018-06-06 11:44 | RAD REPORT ---
EXAM DESCRIPTION: Ultrasound-guided vacuum assisted right breast core biopsy CLINICAL HISTORY: Breast mass N60.91 COMPARISON: No comparisons FINDINGS: Informed consent was obtained and time-out was performed. The patient's right breast was prepped and draped in the usual sterile fashion. 1% lidocaine was used for local anesthetic purposes. Utilizing aseptic technique and ultrasound guidance, a 12 gauge vacuum assisted core biopsy device wa s used to obtain 2 core specimens through the mass of interest. A post biopsy clip was then placed. All collected material was sent for cytology. Patient tolerated procedure well. IMPRESSION: Successful ultrasound guided vacuum assisted right breast mass biopsy.
--- OUTSIDE RECORDS SUMMARY | 2018-07-14 15:39 | XMS REPORT | Clinical Summary ---
:1975 Author Organization [facility] Address [address] [place] [address] Care Team Providers Name Role Phone Unavailable Primary Care Provider Unavailable Allergies No Known Allergies Medications Medication Sig Dispensed Refills Start Date End Date Status ALPRAZolam (XANAX) 0.5 MG Take 0.5 mg by 0 Active tablet mouth every night as needed for Anxiety. diphenhydrAMINE Take 50 mg by 0 Active (BENADRYL) 25 mg tablet mouth every night as needed for Sleep. melatonin 10 mg Tab Take by mouth 0 Active nightly. Active Problems Not on file Encounters Date Type Specialty Care Team Description 07/12/2018 Hospital Encounter Ludy Napoles MD Malignant neoplasm of upper-outer quadrant of right female breast, unspecified estrogen receptor status (HCC) 07/12/2018 Hospital Encounter Ludy Napoles MD Malignant neoplasm of upper-outer quadrant of right female breast, unspecified estrogen receptor status (HCC) 07/12/2018 Hospital Encounter Ludy Napoles MD Malignant neoplasm of upper-outer quadrant of right female breast, unspecified estrogen receptor status (HCC) 07/08/2018 Hospital Encounter Ludy Napoles MD Canceled (Patient) 07/06/2018 Outside Orders Elisha Omalley, 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 Last Filed Vital Signs Vital Sign Reading Time Taken Blood Pressure 146/82 07/12/2018 3:37 PM CDT Pulse 74 07/12/2018 3:37 PM CDT Temperature 36.9 C (98.4 F) 07/12/2018 3:07 PM CDT Respiratory Rate 19 07/12/2018 3:37 PM CDT Oxygen Saturation 97% 07/12/2018 3:37 PM CDT Inhaled Oxygen Concentration - - Weight 105.7 kg (233 lb) 07/11/2018 11:12 AM CDT Height 179.1 cm (5' 10.5") 07/11/2018 11:12 AM CDT Body Mass Index 32.96 07/11/2018 11:12 AM CDT Plan of Treatment Not on file Implants Implanted Type Area [employer] Device Shelf Model / Identifier Expiration Serial / Date Lot Power Port Left: BARD ACCESS 01/01/2020 / Implanted: Qty: 1 on 07/12/2018 by Dorita Laws MD Chest SYSTEMS / [id number] Procedures Procedure Name Priority Date/Time Associated Comments Diagnosis CARDIAC CATH REPORT - 07/13/2018 2:42 SCAN PM CDT ECHOCARDIOGRAM REPORT - 07/12/2018 9:21 SCAN PM CDT XR CHEST 1 VIEW Routine 07/12/2018 3:19 Malignant neoplasm Results for this PORTABLE/BEDSIDE PM CDT of upper-outer procedure are in quadrant of right the results female breast, section. unspecified estrogen receptor status (HCC) IR PORT-A-CATH Routine 07/12/2018 2:55 Malignant neoplasm Results for this PLACEMENT PM CDT of upper-outer procedure are in quadrant of right the results female breast, section. unspecified estrogen receptor status (HCC) 2D ECHO W/ DOPPLER Routine 07/12/2018 11:27 Malignant neoplasm Results for this (CW/PW/COLOR) AM CDT of upper-outer procedure are in quadrant of right the results female breast, section. unspecified estrogen receptor status (HCC) after 07/13/2017 Results CARDIAC CATH REPORT - SCAN (07/13/2018 2:42 PM CDT) Narrative Performed At ECHOCARDIOGRAM REPORT - SCAN (07/12/2018 9:21 PM CDT) Narrative Performed At XR chest 1 view portable / bedside (07/12/2018 3:19 PM CDT) Narrative Performed At FINAL REPORT [facility] Technique: Single view of the chest FINDINGS: Status post recent placement of left internal jugular chest port. Tip projects in the cavoatrial junction. No pneumothorax postprocedure. Lung volumes are low but otherwise clear. Cardiac silhouette is prominent. Soft tissues and bones are unremarkable. Signed: Dorita Laws MD Report Verified Date/Time:07/12/2018 15:40:03 Reading Location: [facility] Radiology Reading Room Procedure Note Interface, External Ris In - 07/12/2018 3:42 PM CDT FINAL REPORT Technique: Single view of the chest FINDINGS: Status post recent placement of left internal jugular chest port. Tip projects in the cavoatrial junction. No pneumothorax postprocedure. Lung volumes are low but otherwise clear. Cardiac silhouette is prominent. Soft tissues and bones are unremarkable. Signed: Dorita Laws MD Report Verified Date/Time: 07/12/2018 15:40:03 Reading Location: [facility] Radiology Reading Room Performing Organization Address City/State/Zipcode Phone Number [employer] IR Port-a-Cath Placement (07/12/2018 2:55 PM CDT) Narrative Performed At FINAL REPORT [facility] Procedure: Chest port placement. History: Breast cancer Operators: Angelica Conscious Sedation:Versed 3 mg, fentanyl 150 mcg, (Administered after informed consent was obtained) Vital signs were monitored throughout the procedure by a nurse, and remained stable. Physician intra-service time was 30 minutes. Total fluoroscopy time: 9 seconds Estimated dose reported as ( Ka, r):0.1 mGy Technique: Informed written consent was obtained. The left neck and chest were prepped. All elements maximal sterile barrier technique was utilized for this procedure, including utilization of sterile scrub solution for skin prep, a large sterile sheet to cover the areas of the patient that were not prepped, and hand hygiene, mask, head covering, and sterile gown for performing radiologist and scrub technologist. Under direct real-time ultrasound guidancethe right internal jugular vein was accessed with a micropuncture needle. A 5 Tanzanian sheath and dilator was placed. A 3 J-wire was then advanced and the access site was dilated. A 7 Tanzanian peel-away introducer sheath was then placed. The distal end of the 5 Tanzanian port catheter was then advanced through the peel-away and placed with tip under fluoroscopic control at the atriocaval junction. The proximal end of the catheter was then back tunneled on the anterior chest. A subcutaneous pocket was then made. The catheter was then attached to asingle-lumen port which was placed into the pocket and anchored with 2 Monocryl sutures. The port flushed and aspirated easily following placement and was packed with 5cc of Heparin at 100U/cc (total dosage of 500U). The overlying skin was closed with interrupted subcuticular sutures. Steri-strips anddressing was applied. There are no immediate complications. The patient tolerated the procedure well and left the department in the same condition. Findings: 1. Inital ultrasound evaluation prior to port placement showed a patent and compressible left internal jugular vein. An ultrasound image was saved to PACS. 2. Spot radiograph following port placement revealed appropriate positioning with the tip projecting at the cavoatrial junction. No immediate pneumothorax identified. Impression: Successful placement of a single-lumen left sided chest port using sonographic and fluoroscopic guidance and conscious sedation. The tip is satisfactorily positioned at the atriocaval junction. A "Power" port rated for power CT injections was placed. Signed: Dorita Laws MD Report Verified Date/Time:07/12/2018 16:48:03 Reading Location: [facility] Radiology Reading Room Procedure Note Interface, External Ris In - 07/12/2018 4:50 PM CDT FINAL REPORT Procedure: Chest port placement. History: Breast cancer Operators: Angelica Conscious Sedation: Versed 3 mg, fentanyl 150 mcg, (Administered after informed consent was obtained) Vital signs were monitored throughout the procedure by a nurse, and remained stable. Physician intra-service time was 30 minutes. Total fluoroscopy time: 9 seconds Estimated dose reported as ( Ka, r): 0.1 mGy Technique: Informed written consent was obtained. The left neck and chest were prepped. All elements maximal sterile barrier technique was utilized for this procedure, including utilization of sterile scrub solution for skin prep, a large sterile sheet to cover the areas of the patient that were not prepped, and hand hygiene, mask, head covering, and sterile gown for performing radiologist and scrub technologist. Under direct real-time ultrasound guidance the right internal jugular vein was accessed with a micropuncture needle. A 5 Tanzanian sheath and dilator was placed. A 3 J-wire was then advanced and the access site was dilated. A 7 Tanzanian peel-away introducer sheath was then placed. The distal end of the 5 Tanzanian port catheter was then advanced through the peel-away and placed with tip under fluoroscopic control at the atriocaval junction. The proximal end of the catheter was then back tunneled on the anterior chest. A subcutaneous pocket was then made. The catheter was then attached to a single-lumen port which was placed into the pocket and anchored with 2 Monocryl sutures. The port flushed and aspirated easily following placement and was packed with 5cc of Heparin at 100U/cc (total dosage of 500U). The overlying skin was closed with interrupted subcuticular sutures. Steri-strips and dressing was applied. There are no immediate complications. The patient tolerated the procedure well and left the department in the same condition. Findings: 1. Inital ultrasound evaluation prior to port placement showed a patent and compressible left internal jugular vein. An ultrasound image was saved to PACS. 2. Spot radiograph following port placement revealed appropriate positioning with the tip projecting at the cavoatrial junction. No immediate pneumothorax identified. Impression: Successful placement of a single-lumen left sided chest port using sonographic and fluoroscopic guidance and conscious sedation. The tip is satisfactorily positioned at the atriocaval junction. A "Power" port rated for power CT injections was placed. Signed: Dorita Laws MD Report Verified Date/Time: 07/12/2018 16:48:03 Reading Location: [facility] Radiology Reading Room Performing Organization Address City/State/Zipcode Phone Number [facility] 2D Echo W/Doppler(CW/PW/Color) (07/12/2018 11:27 AM CDT) Ejection Fraction [facility] Narrative Performed At Transthoracic Echocardiography Report (TTE) [facility] Patient Name Aren BARROW of Study 07/12/2018 DHEERAJ [id number] GenderFemale Visit Number [id number] Unknown [id number] Room Number Number Date of Birth1975Referring Physician 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 Procedure Type of Study TTE procedure:2DECHO W DOPPLER(CW/PW/COLOR) (Routine) Indications:Malignant neoplasm. Clinical History CAncer Anemia Height: 69 inches Weight: 105.69 kg (233 lbs) BSA: 2.2 m^2 BMI: 34.41 kg/m^2 HR: 81 bpm Summary Normal left ventricular chamber size. Normal wall thickness. Normal overall left ventricular systolic function. No apparent segmental wall motion abnormalities. Estimated LVEF is 55-60%. No evidence of pericardial effusion. Signature Findings Technical Quality: Limited visualization due to body habitus. LeftNormal left ventricular chamber size. Normal wall thickness. Ventricle Normal overall left ventricular systolic function. No apparent segmental wall motion abnormalities. Estimated LVEF is 55-60%. Left Atrium Normal size left atrium. Right Normal right ventricle structure and function. Ventricle Right AtriumNormal right atrium. Aortic ValveNormal aortic valve structure and function. Mitral ValveNormal mitral valve structure and function. Tricuspid Normal tricuspid valve structure and function. Valve PulmonicNormal pulmonic valve structure and function. Valve Pericardium No evidence of pericardial effusion. Chambers/Structures Left Atrium LA Dimension: 3.64 cm Left Ventricle LVIDd: 2.68 cm LVEDV:26.58 ml LVIDs: 2.1 cm LVESV:14.46 ml LV Septum Diastolic: 2.05 cm LV Septum Systolic: 2.11 cmLV Length: 10.01 cm LV PW Diastolic: 1.64 cm LV FS: 21.6 % LV PW Systolic: 2.65 cm LVOT Diameter: 2.19 cm LVEF: 45.6 % Right Atrium RA Systolic Pressure: 10 mmHg Right Ventricle RV Systolic Pressure: 14.47 mmHg Aorta Ao Root S of Georgette.: 2.82 cm Doppler/Quantitative Measurements Mitral Valve MV Peak E-Wave: 0.78 m/sMV Peak A-Wave: 0.65 m/s P1/2t: 84.9 msecE/ A Ratio: 1.2 Peak Velocity: 0.82 m/s Peak Gradient: 2.41 mmHg Mean Velocity: 0.47 m/s Deceleration Time: 253.6 msec Mean Gradient: 1.08 mmHgArea (continuity): 2.99 cm^2 MV Area (PHT): 2.59 cm^2 MV VTI: 25.54 cm MV Shaquille. Peak: Tissue Doppler E' Lateral Velocity: 0.13 m/s Aortic Valve Peak Velocity: 1.27 m/sMean Velocity: 0.9 m/s Peak Gradient: 6.45 mmHg Mean Gradient: 3.64 mmHg AV Area (continuity): 2.84 cm^2 AV VTI: 26.83 cm Cusp Separation: 2.08 cm AV DVI: 0.76 LVOT Peak Velocity: 1.05 m/s Peak Gradient: 4.43 mmHg Mean Velocity: 0.67 m/s Mean Gradient: 2.17 mmHg LVOT Diameter: 2.19 cmLVOT VTI: 20.26 cm LVOT Area: 3.77 cm^2LVOT SV:76.28 ml LVOT CO: 6.18 l/min LVOT CI: 2.81 l/min/m^2 Tricuspid Valve Estimated RVSP: 14.52 mmHg Estimated RAP: 10 mmHg TR Velocity: 1.06 m/s TR Gradient: 4.47 mmHg Pulmonic Valve Peak Velocity: 1.34 m/s Peak Gradient: 7.13 mmHg Estimated PASP: 14.47 mmHg OH ED Velocity: 0.82 m/s Procedure Note Interface, External Ris In - 07/12/2018 3:19 PM CDT Transthoracic Echocardiography Report (TTE) Demographics Patient Name MICAH BARROW Date of Study 07/12/2018 DHEERAJ Gender Female Visit Number [id number] Race Unknown Room Number Number Date of 1975 Referring Physician 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 Procedure Type of Study TTE procedure:2DECHO W DOPPLER(CW/PW/COLOR) (Routine) Indications:Malignant neoplasm. Clinical History CAncer Anemia Height: 69 inches Weight: 105.69 kg (233 lbs) BSA: 2.2 m^2 BMI: 34.41 kg/m^2 HR: 81 bpm Summary Normal left ventricular chamber size. Normal wall thickness. Normal overall left ventricular systolic function. No apparent segmental wall motion abnormalities. Estimated LVEF is 55-60%. No evidence of pericardial effusion. Signature Findings Technical Quality: Limited visualization due to body habitus. Left Normal left ventricular chamber size. Normal wall thickness. Ventricle Normal overall left ventricular systolic function. No apparent segmental wall motion abnormalities. Estimated LVEF is 55-60%. Left Atrium Normal size left atrium. Right Normal right ventricle structure and function. Ventricle Right Atrium Normal right atrium. Aortic Valve Normal aortic valve structure and function. Mitral Valve Normal mitral valve structure and function. Tricuspid Normal tricuspid valve structure and function. Valve Pulmonic Normal pulmonic valve structure and function. Valve Pericardium No evidence of pericardial effusion. Chambers/Structures Left Atrium LA Dimension: 3.64 cm Left Ventricle LVIDd: 2.68 cm LVEDV:26.58 ml LVIDs: 2.1 cm LVESV:14.46 ml LV Septum Diastolic: 2.05 cm LV Septum Systolic: 2.11 cm LV Length: 10.01 cm LV PW Diastolic: 1.64 cm LV FS: 21.6 % LV PW Systolic: 2.65 cm LVOT Diameter: 2.19 cm LVEF: 45.6 % Right Atrium RA Systolic Pressure: 10 mmHg Right Ventricle RV Systolic Pressure: 14.47 mmHg Aorta Ao Root S of Georgette.: 2.82 cm Doppler/Quantitative Measurements Mitral Valve MV Peak E-Wave: 0.78 m/s MV Peak A-Wave: 0.65 m/s P1/2t: 84.9 msec E/A Ratio: 1.2 Peak Velocity: 0.82 m/s Peak Gradient: 2.41 mmHg Mean Velocity: 0.47 m/s Deceleration Time: 253.6 msec Mean Gradient: 1.08 mmHg Area (continuity): 2.99 cm^2 MV Area (PHT): 2.59 cm^2 MV VTI: 25.54 cm MV Shaquille. Peak: Tissue Doppler E' Lateral Velocity: 0.13 m/s Aortic Valve Peak Velocity: 1.27 m/s Mean Velocity: 0.9 m/s Peak Gradient: 6.45 mmHg Mean Gradient: 3.64 mmHg AV Area (continuity): 2.84 cm^2 AV VTI: 26.83 cm Cusp Separation: 2.08 cm AV DVI: 0.76 LVOT Peak Velocity: 1.05 m/s Peak Gradient: 4.43 mmHg Mean Velocity: 0.67 m/s Mean Gradient: 2.17 mmHg LVOT Diameter: 2.19 cm LVOT VTI: 20.26 cm LVOT Area: 3.77 cm^2 LVOT SV:76.28 ml LVOT CO: 6.18 l/min LVOT CI: 2.81 l/min/m^2 Tricuspid Valve Estimated RVSP: 14.52 mmHg Estimated RAP: 10 mmHg TR Velocity: 1.06 m/s TR Gradient: 4.47 mmHg Pulmonic Valve Peak Velocity: 1.34 m/s Peak Gradient: 7.13 mmHg Estimated PASP: 14.47 mmHg [place] ED Velocity: 0.82 m/s Performing Organization Address City/State/Zipcode Phone Number [facility] after 07/13/2017 Insurance Payer Benefit Plan / Group Subscriber ID Type Phone Address [facility] [place] HMO POS SELECT xxxxxxxxx HMO/POS CARE CHOICE
--- OUTSIDE RECORDS SUMMARY | 2018-07-14 15:39 | XMS REPORT ---
:1975 Author Organization [facility] Address [address] [place] [address] Care Team Providers Name Role Phone Unavailable Unavailable Unavailable Problems This patient has no known problems. Allergies, Adverse Reactions, Alerts This patient has no known allergies or adverse reactions. Medications This patient has no known medications. Results Test Description Test Time Test Comments Text Results Atomic Results Result Comments ORALIA SANTOSH CATH 2018-07-12 16:48:00 Reason for FINAL REPORT PATIENT CENTRAL INS Exam:->[id number] ID: [id number] W/PORT C Procedure: Chest port placement. History: Breast cancer [...] accessed with a micropuncture needle. A 5 Indian sheath and dilator was placed. A 3 J-wire was then advanced and the access site was dilated. A 7 Indian peel-away introducer sheath was then placed. The distal end of the 5 Indian port catheter was then advanced through the [...] CT injections was placed. Signed: Dorita Laws Verified Date/Time: 07/12/2018 16:48:03 Reading Location: [facility] Radiology Reading Room , CHEST, 1 2018-07-12 15:40:00 Reason for FINAL REPORT PATIENT VIEW, NON DEPT Exam:->[id number] ID: [id number] Technique: Single view of the chest FINDINGS: Status post recent placement of left internal jugular chest port. Tip projects in the cavoatrial junction. No pneumothorax postprocedure. Lung volumes are low but otherwise clear. Cardiac silhouette is prominent. Soft tissues and bones are unremarkable. Signed: Dorita Laws Verified Date/Time: 07/12/2018 15:40:03 Reading Location: [facility] Radiology Reading Room
== END | disposition home or self-care (01) ==
LOC: DS 11:00
PROVIDERS: ATTEND Specialist
PROC: 0HBT3ZX Excision of Right Breast, Percutaneous Approach, Diagnostic (ICD-10-PCS; principal; 2018-06-06)
DX: C50.411 Malignant neoplasm of upper-outer quadrant of right female breast (principal); Z17.0 Estrogen receptor positive status [ER+]
CPT/HCPCS: 19083; 88305